=== PATIENT | female | born 1990 | race Caucasian/White ===

== ENCOUNTER 2019-05-10 19:24 | Emergency (ER) | payer OTHER ==
[~2019-05-10] VITALS: Ht 157.5 cm; Wt 67.6 kg
[2019-05-10 19:49] VITALS: Ht 157.5 cm; Wt 67.6 kg
[2019-05-10] MEDS ORDERED: KETOROLAC 30 MG INJ IM STA (22:35)
[2019-05-10] MEDS ORDERED: HYDROCODONE/APAP (5/325) TAB PO ONE (23:00)
[2019-05-10] MEDS ORDERED: ACETAMINOPHEN 325 MG TAB PO ONE (23:00)
[2019-05-11] MEDS ORDERED: CEPH-443 PO (00:08)
[2019-05-11] MEDS ORDERED: IBUP-1542 PO (00:08)
--- NOTE | 2019-05-11 00:28 | ERD ---
ER Documentation Chief Complaint Chief Complaint BACK PAIN X 1 MONTH. HPI This is a 28-year-old otherwise healthy female who presents to the ED complaining of intermittent low back pain for the past 1 month. She denies any fall. She states pain is sharp and worse with movement. She has been taking [id number] Aleve with no relief of her symptoms. Denies any urinary symptoms. No fevers or chills. No bilateral lower extremity numbness. No abdominal pain. She does report some nausea but no vomiting. She states she spoke to her PCP was worried about kidney stones. ROS All systems reviewed and are negative except as per history of present illness. Medications Home Meds Active Scripts Cephalexin* (Keflex*) 500 Mg Capsule, 500 MG PO BID for 7 Days, CAP Prov:DISHIGRIKIANURIUR Palmer PA-C 05/11/19 Ibuprofen* (Motrin*) 600 Mg Tab, 600 MG PO Q6H PRN for PAIN AND OR ELEVATED TEMP, #30 TAB Prov:DISHIGRIKIANURIUR Palmer PA-C 05/11/19 Allergies Allergies: Coded Allergies: No Known Allergy (Unverified , 05/10/19) PMhx/Soc Medical and Surgical Hx: pt denies Medical Hx, pt denies Surgical Hx Hx Alcohol Use: No Hx Substance Use: No Hx Tobacco Use: No Physical Exam Vitals Vital Signs Date Temp Pulse Resp B/P (MAP) Pulse Ox O2 O2 Flow FiO2 Time Delivery Rate 05/10/19 98.7 94 18 149/82 100 19:49 (104) Physical Exam Const: No acute distress Head: Atraumatic Eyes: Normal Conjunctiva ENT: Normal External Ears, Nose and Mouth. Neck: Full range of motion. No meningismus. Resp: Clear to auscultation bilaterally Cardio: Regular rate and rhythm, no murmurs Abd: Soft, non tender, non distended. Normal bowel sounds Skin: No petechiae or rashes Back: No midline tenderness. + Right CVA tenderness palpation. Ext: No cyanosis, or edema Neur: Awake and alert Psych: Normal Mood and Affect Results 24 hrs Laboratory Tests Test 05/10/19 22:46 05/10/19 22:49 05/10/19 22:50 Urine Color STRAW Urine Clarity CLOUDY Urine pH 7.0 Urine Specific [place] 1.004 Urine Ketones NEGATIVE mg/dL Urine Nitrite NEGATIVE mg/dL Urine Bilirubin NEGATIVE mg/dL Urine Urobilinogen NEGATIVE mg/dL Urine Leukocyte Esterase 2+ Delio/ul Urine Microscopic RBC 4 /HPF Urine Microscopic WBC 12 /HPF Urine Squamous Epithelial Cells FEW /HPF Urine Bacteria MODERATE /HPF Urine Hemoglobin 1+ mg/dL Urine Glucose NEGATIVE mg/dL Urine Total Protein NEGATIVE mg/dl Urine Test NEGATIVE POC Beta HCG, Qualitative NEGATIVE Bedside Urine pH (LAB) 7.0 Bedside Urine Protein (LAB) Negative Bedside Urine Glucose (UA) Negative Bedside Urine Ketones (LAB) Negative Bedside Urine Blood Trace-intact Bedside Urine Nitrite (LAB) Negative Bedside Urine Leukocyte Esterase 1+ (L Current Medications Medications Dose Sig/Iveth Start Time Status Last (Trade) Ordered Route PRN Stop Time Admin Dose Reason Admin Ketorolac 30 mg ONCE STAT 05/10/19 DC 05/10/19 Tromethamine IM 22:35 05/10/19 22:51 (Toradol) 22:37 650 mg ONCE ONCE 05/10/19 DC Acetaminophen PO 23:00 05/10/19 (Tylenol 23:00 Tab) 1 tab ONCE ONCE 05/10/19 DC Acetaminophen PO 23:00 05/10/19 / 23:01 Hydrocodone Bitart ([place] (5/325)) Lidocaine 5 ml ONCE ONCE 05/11/19 (Xylocaine INFIL 00:30 05/11/19 1% (Mpf)) 00:31 Ceftriaxone 1 gm ONCE ONCE 05/11/19 Sodium IM 00:30 05/11/19 (Rocephin) 00:31 Procedures/[facility] LABS & DIAGNOSTIC IMAGING: Urine: Leuk esterase, pyuria uhcg: + neg PROCEDURES: PROCEDURE: XR Lumbar Spine. CLINICAL INDICATION: Lumbar spine pain. TECHNIQUE: AP, lateral, and cone-down lateral view of the lumbar spine were obtained. COMPARISON: No prior studies are available for comparison. FINDINGS: The alignment of the lumbar spine is within normal limits. The vertebral body heights and marrow density are normal in appearance. There is preservation of the intervertebral disc spaces. There is no significant facet spondylosis. The neural foramina appear patent. The paraspinal soft tissues unremarkable. The posterior elements are unremarkable. IMPRESSION: 1. Normal radiographs of the lumbar spine. 2. No evidence of fracture or significant degenerative disc disease. ED COURSE: The patient was given IM Toradol, [place], Rocephin The medication was well tolerated and the patient had market improvement in symptoms. The patient remained stable throughout ED course. MEDICAL DECISION MAKING: This is a 28-year-old female with history of frequent UTIs who presents with atraumatic back pain. Her UA reveals evidence of an infection. She has been having subjective fevers and back pain at home, therefore we will treat as pyelonephritis. Patient was given 1 g of Rocephin here and will be discharged with a prescription for Keflex. Lumbar x-ray was ordered to rule out bony causes of her pain, this was normal. Clinical picture points more towards a pyelonephritis/cystitis diagnosis. I have low suspicion for severe sepsis or nephrolithiasis. Patient discharged home with PCP follow-up in 1 week, strict return precautions discussed. PRESCRIPTIONS: Keflex, Ibuprofen SPECIALIST FOLLOW UP RECOMMENDED: None Patient has been advised to follow up with primary care in 1-2 days. Departure Diagnosis: Primary Impression: UTI (urinary tract infection) Urinary tract infection type: site unspecified Hematuria presence: with hematuria Qualified Codes: N39.0 - Urinary tract infection, site not specified; R31.9 - Hematuria, unspecified Condition: Stable Patient Instructions: Understanding Urinary Tract Infections (UTIs) Additional Instructions: Call your primary care doctor TOMORROW for an appointment during the next 2-4 days and bring all the information and medications prescribed. If the symptoms get worse and your provider is unavailable, return to the Emergency Department immediately. ADAMA LIVINGSTON PA-C May 11, 2019 00:28
[2019-05-11] MEDS ORDERED: CEFTRIAXONE 1 GM INJ IM ONE (00:30)
[2019-05-11] MEDS ORDERED: LIDOCAINE 1% (MPF) 5 ML VIAL INFIL ONE (00:30)
[2019-05-11 00:47] VITALS: BP 114/71; PULSE 63; RESP 20
== END 2019-05-11 00:47 | disposition home or self-care (01) ==
LOC: FTE 19:24
DX: N39.0 Urinary tract infection, site not specified (principal)
CPT/HCPCS: 72100; 81001; 81025; 84703; J0696; J1885; Z7610; 81003; 96372